=== PATIENT | male | born 1985 | race Caucasian/White ===

== ENCOUNTER → 2024-04-28 | Outpatient (CLI) | payer OTHER, SELFPAY ==
--- NOTE | 2024-04-28 11:45 | RAD_ITS ---
EXAM: XR Left Hand Complete, 3 or More Views CLINICAL INDICATION: TECHNIQUE: Frontal, lateral and oblique views of the left hand. COMPARISON: No relevant prior studies available. FINDINGS: BONES/JOINTS: See below. SOFT TISSUES: Soft tissue swelling without acute fracture. No radiopaque foreign body. RAD/Hand Min 3 Views IMPRESSION: 1. Soft tissue swelling without acute fracture. 2. If symptoms persist, repeat radiograph in 7-10 days recommended. Reading Location: [facility]
== END | disposition home or self-care (01) ==
LOC: RAD 11:34
PROVIDERS: Referring Provider Nurse Practitioner Family; Visit Provider Nurse Practitioner Family
DX: S63.611A Unspecified sprain of left index finger, initial encounter (principal)
CPT/HCPCS: 73130